=== PATIENT | female | born 1965 | race Caucasian/White ===

== ENCOUNTER 2022-12-19 22:41 | Emergency (ER) | payer BC ==
[2022-12-19] MEDS ORDERED: Glucagon 1 MG/ML KIT ONE (23:26)
[2022-12-20] MEDS ORDERED: Dexmedetomidine 200 MCG/2 ML VIAL ONE (00:53)
[2022-12-20] MEDS ORDERED: Fentanyl 100 MCG/2 ML VIAL ONE (01:02)
[2022-12-20] MEDS ORDERED: PROPOFOL 20 ML ONE (01:02)
== END 2022-12-20 01:22 | disposition admitted as inpatient to this hospital (09) ==
LOC: CSHERS 22:41
DX: T18.128A Food in esophagus causing other injury, initial encounter (principal)
CPT/HCPCS: 71046; 88305; 96372; J1611; J2704; J3010